=== PATIENT | female | born 1970 ===

== ENCOUNTER 2019-05-11 22:26 | Emergency (ER) | payer SELFPAY ==
[2019-05-11] MEDS ORDERED: fentaNYL 100 MCG/2 ML INJ IVP ONE (22:49)
[2019-05-11] MEDS ORDERED: ONDANSETRON 4 MG/2 ML VIAL IVP ONE (22:50)
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
[2019-05-11] MEDS ORDERED: NS 1,000 ML IV ONE (23:20)
[2019-05-12] MEDS ORDERED: fentaNYL 100 MCG/2 ML INJ IVP ONE (00:08)
[2019-05-12] MEDS ORDERED: ONDANSETRON 4 MG/2 ML VIAL IVP ONE (00:08)
[2019-05-12] MEDS ORDERED: KETOROLAC 30 MG/1 ML SDV IVP ONE (00:09)
[2019-05-12] MEDS ORDERED: TAMSULOSIN HCL 0.4 MG CAP PO ONE (00:47)
[2019-05-12] MEDS ORDERED: ONDANSETRON 4MG PREPACK#2 BTL TAKEHOME ONE (01:17)
[2019-05-12] MEDS ORDERED: OXYCODONE/APAP 5/325MG PREPACK#4 BTL TAKEHOME ONE (01:17)
[2019-05-12 01:52] VITALS: BP 151/94
== END 2019-05-12 01:43 | disposition home or self-care (01) ==
LOC: CED 22:26
DX: N20.1 Calculus of ureter (principal)
CPT/HCPCS: 74176-PO; 80048-ER; 81025-ER; 85025-QW-ER; 96374-ER; 96375-ER; 96376-ER; 99285-ER; J1885; J2405; J3010